=== PATIENT | female | born 1960 | race Two or more races ===

== ENCOUNTER → 2016-07-03 | Outpatient (CLI) | payer OTHER ==
[~2016-07-03] MED LIST: ALLOPURINOL100 MG PO; COZAAR50 MG PO; LOVAZA1 GM PO; PRAVACHOL40 MG PO; VITAMIN D32000 UNI1 PO
[2016-07-03 08:42] LABS: HEMATOCRIT 33.7 % (36.0-46.0); MCH 30.5 PG (29.0-34.0); MCHC 32.3 G/DL (30.0-36.0); MCV 94.4 FL (83-99); MEAN PLAT.VOLUME 9.7 uM^3 (9.5-12.4); PLATELET COUNT 196 K/uL (156-360); RBC DIS.WIDTH-CV 12.8 % (11.8-14.6); RBC DIS.WIDTH-SD 43.9 % (39-53); RED BLOOD COUNT 3.57 M/uL (3.80-5.20); WHITE BLOOD COUNT 5.9 K/uL (4.1-10.2)
[2016-07-03 08:51] LABS: INTER. NORMALIZED RATIO 0.9; PROTHROMBIN TIME 9.5 (9.2-11.2); PTT 26.9 (25-32)
== END | disposition home or self-care (01) ==
LOC: OPR 06-25 08:00 → EDSTATUS 08:00 → OPR 08:00
PROVIDERS: Internal Medicine Nephrology
PROC: 0TB13ZX Excision of Left Kidney, Percutaneous Approach, Diagnostic (ICD-10-PCS; principal; 2016-07-03)
DX: R80.9 Proteinuria, unspecified (principal); I12.9 Hypertensive chronic kidney disease with stage 1 through stage 4 chronic kidney disease, or unspecified chronic kidney disease; N18.3 Chronic kidney disease, stage 3 (moderate)
CPT/HCPCS: 77012; 85027; 85610; 85730; 88305 90; 88313 90; 88346 90; 88348 90; J3010